=== PATIENT | female | born 2000 | race Asian ===

== ENCOUNTER 2023-12-11 19:56 | Emergency (ER) | payer OTHER, SELFPAY ==
[2023-12-11] VITALS (8 sets, daily range): BP systolic 102–119; BP diastolic 53–64; PULSE 71–84; RESP 16–22; TEMP 36.8; O2SAT 98–100; BMI 26.0
--- NOTE | 2023-12-11 20:51 | ED.GENADULT ---
HPI - General Adult General Chief complaint: Dizziness Stated complaint: HEADACHE, FEVER, BLURRED VISION Time Seen by Provider: 12/11/23 20:30 Source: patient Mode of arrival: Wheelchair History of Present Illness HPI narrative: Patient is a 23-year-old female who for the past 3 weeks has had seeing accept him on and off episodes of headache, occasional blurred vision, feeling chills but no overt fevers. Also has right ear discomfort. She has taken ibuprofen for the headache but it has not improved. Has not taken Tylenol. Earlier this evening she had a presyncopal episode that was witnessed by her which brought her into the emergency department. Related Data Allergies Allergy/AdvReac Type Severity Reaction Status Date / Time No Known Drug Allergies Allergy Verified 12/11/23 20:02 Review of Systems Review of Systems ROS Unobtainable: All systems reviewed & are unremarkable except as noted in HPI and below Patient History Social History Smoking Status: Current every day smoker Smoking Status: Current every day smoker tobacco type: vaping Substance Use Type: does not use Exam Initial Vital Signs Initial Vital Signs: Vital Signs Temperature 98.3 F 12/11/23 20:02 Pulse Rate 84 12/11/23 20:02 Respiratory Rate 16 12/11/23 20:02 Blood Pressure 112/60 12/11/23 20:02 Pulse Oximetry 99 12/11/23 20:02 Oxygen Delivery Method Room Air 12/11/23 20:02 Const General: cooperative, comfortable and No ill appearing HENMT Head: normal to inspection and normocephalic Ears: TM's normal bilaterally Mouth: moist mucous membranes Neck Neck: no meningeal signs Resp Effort & Inspection: normal respiratory effort Auscultation: clear to auscultation bilaterally Cardio Rate: regular rate Rhythm: regular rhythm GI Inspection: normal to inspection Skin General: no rashes or lesions noted Neuro General: patient alert, patient awake, patient oriented x3 and moves all extremities Cognition: normal cognition Speech: speech normal Sensory Exam: no sensory deficits noted Extrem General: capillary refill normal Scores GCS [place] coma scale eye opening: Spontaneous [place] coma scale verbal response: Orientated [place] coma scale motor response: Obey commands [place] coma scale total score: 15 Course Orders Ordered: ED Orders 12/11/23 20:35 Respiratory Panel (Film Array) Stat 12/11/23 20:45 Complete Blood Count AUTO DIFF Stat Comprehensive Metabolic Panel Stat Lipase Stat Discontinued Medications Sodium Chloride (Normal Saline 0.9%) 1,000 mls @ 1,000 mls/hr IV BOLUS ONE Stop: 12/11/23 21:29 Last Infusion: 12/11/23 22:17 Dose: Infused Documented By: Admin: 12/11/23 21:19 Dose: 1,000 mls/hr Documented By: JOSEPH Acetaminophen (Ofirmev) 1,000 mg in 100 mls @ 400 mls/hr IV NOW ONE Stop: 12/11/23 21:05 Last Infusion: 12/11/23 21:59 Dose: Infused Documented By: Admin: 12/11/23 21:19 Dose: 400 mls/hr Documented By: JOSEPH Vital Signs Vital signs: Vital Signs - 8 hr 12/11/23 20:02 12/11/23 20:22 12/11/23 20:30 Temperature 98.3 F Pulse Rate 84 83 76 Respiratory Rate 16 19 18 Blood Pressure 112/60 Pulse Oximetry 99 98 99 Oxygen Delivery Method Room Air 12/11/23 20:30 12/11/23 21:00 12/11/23 21:26 Temperature Pulse Rate 82 78 Respiratory Rate 22 21 Blood Pressure 106/53 L Pulse Oximetry 99 100 Oxygen Delivery Method Room Air 12/11/23 21:26 12/11/23 21:30 12/11/23 21:30 Temperature Pulse Rate 77 Respiratory Rate 22 Blood Pressure 119/57 L 112/56 L Pulse Oximetry 100 Oxygen Delivery Method 12/11/23 22:00 12/11/23 22:01 12/11/23 22:01 Temperature Pulse Rate 71 76 Respiratory Rate 18 18 Blood Pressure 102/64 Pulse Oximetry 98 98 Oxygen Delivery Method Room Air Medical Decision Making Lab Data Lab results reviewed: Yes I reviewed the patient's lab results. 12/11/23 20:45 12/11/23 20:45 Labs: Lab Results 12/11/23 12/11/23 Range/Units 20:35 20:45 WBC 9.5 (4.5-11.0) X10^3/uL RBC 4.73 (4.0-5.2) X10^6/uL Hgb 12.7 (12.0-16.0) g/dL Hct 38.1 (36-46) % MCV 80.5 (80-100) fL MCH 26.7 (26-34) PG MCHC 33.2 (30-36) % RDW 15.1 H (11.6-14.8) % Plt Count 319 (150-400) X10^3/uL Neut % (Auto) 57.6 (50-75) % Lymph % (Auto) 32.6 (25-40) % [place] % (Auto) 6.0 (3-14) % Eos % (Auto) 2.7 (2-4) % Baso % (Auto) 1.1 (0-2) % Neut # (Auto) 5500 (5654-4018) /uL Lymph # (Auto) 3100 (2467-4201) /uL [place] # (Auto) 600 (0-900) /uL Eos # (Auto) 300 (0-450) /uL Baso # (Auto) 100 (0-100) /uL Sodium 139 (137-145) mmol/L Potassium 4.2 (3.4-5.1) mmol/L Chloride 107 (98-107) mmol/L Carbon Dioxide 21 L (22-32) mmol/L BUN 9 (7-17) mg/dL Creatinine 1.02 (0.52-1.04) mg/dL Estimated GFR > 60 (>60) mL/min BUN/Creatinine Ratio 8.8 (6-22) Glucose 99 (70-100) mg/dL Calcium 9.4 (8.4-10.2) mg/dL Total Bilirubin 0.5 (0.2-1.3) mg/dL AST 18 (14-36) IU/L ALT 14 (<35) IU/L Alkaline Phosphatase 63 (38-126) U/L Total Protein 7.8 (6.3-8.2) g/dL Albumin 4.5 (3.5-5.0) g/dL Globulin 3.3 (1.7-4.1) g/dL Albumin/Globulin Ratio 1.4 (1.0-2.8) Lipase 64 (23-300) U/L Chlamy pneumoniae PCR Not detected (Not Detect) Adenovirus (PCR) Not detected (Not Detect) B.parapertussis DNA PCR Not detected (Not Detecte) Coronavirus OC43 (PCR) Not detected (Not Detect) Coronavirus HKU1 (PCR) Not detected (Not Detect) Coronavirus 229E (PCR) Not detected (Not Detect) SARS-CoV-2 (PCR) Not detected (Not Detecte) Coronavirus NL63 (PCR) Not detected (Not Detect) Human Metapneumovir PCR Not detected (Not Detect) Influenza Type A (PCR) Not detected (Not Detect) Influenza Type B (PCR) Not detected (Not Detect) M. pneumoniae (PCR) Not detected (Not Detect) Parainfluenza 1 (PCR) Not detected (Not Detect) Parainfluenza 2 (PCR) Not detected (Not Detect) Parainfluenza 3 (PCR) Not detected (Not Detect) Parainfluenza 4 (PCR) Not detected (Not Detect) RSV (PCR) Not detected (Not Detect) Entero/Rhino (PCR) Not detected (Not Detect) MDM Narrative Medical decision making narrative: Patient reports improvement of symptoms after her IV Tylenol. Low suspicion for meningitis. Respiratory panel is negative. She has an unremarkable exam. Symptoms been going on for 3 weeks. She was afebrile. No indication for antibiotics. If her symptoms continue she may benefit from a referral to see ENT. She was given return precautions. She expressed understanding and agreement with plan. Discharge Plan Departure Patient Disposition: Home Clinical Impression: Headache, Dizziness Instructions: DI for Dizziness-Nonvertigo Activity Restrictions/Additional Instructions: You can continue to take Tylenol and/or ibuprofen to try to help with your symptoms. Recommend you contact your primary care doctor for a follow-up. You may need a referral to see ear nose and throat if your symptoms are not improving. Return to the emergency department for new symptoms. Referrals: Tamie Gallo FNP-C [Primary Care Provider] - Austin Simpson MD [Physician] - Stand Alone Forms: Patient Portal/API
[2023-12-11 20:57] LABS: Add Manual Diff / Slide Review NO; Basophils Absolute Auto 100 /uL (0-100); Basophils Percent Auto 1.1 % (0-2); Eosinophils Absolute Auto 300 /uL (0-450); Eosinophils Percent Auto 2.7 % (2-4); Hematocrit 38.1 % (36-46); Hemoglobin 12.7 g/dL (12.0-16.0); Lymphocytes Absolute Auto 3100 /uL (1100-4500); Lymphocytes Percent Auto 32.6 % (25-40); Mean Corpuscular HGB Conc 33.2 % (30-36); Mean Corpuscular Hemoglobin 26.7 PG (26-34); Mean Corpuscular Volume 80.5 fL (80-100); Monocytes Absolute Auto 600 /uL (0-900); Neutrophils Absolute Auto 5500 /uL (1500-7000); Neutrophils Percent Auto 57.6 % (50-75); Platelet Count 319 X10^3/uL (150-400); Red Blood Cell Count 4.73 X10^6/uL (4.0-5.2); Red Cell Distribution Width 15.1 % (11.6-14.8); White Blood Cell Count 9.5 X10^3/uL (4.5-11.0)
[2023-12-11 21:08] LABS: Alanine Aminotransferase 14 IU/L (<35); Albumin 4.5 g/dL (3.5-5.0); Albumin Globulin Ratio 1.4 (1.0-2.8); Alkaline Phosphatase 63 U/L (38-126); Aspartate Aminotransferase 18 IU/L (14-36); BUN Creatinine Ratio 8.8 (6-22); Bilirubin Total 0.5 mg/dL (0.2-1.3); Blood Urea Nitrogen 9 mg/dL (7-17); Calcium 9.4 mg/dL (8.4-10.2); Carbon Dioxide 21 mmol/L (22-32); Chloride 107 mmol/L (98-107); Estimated Glomerular Filt Rate > 60 mL/min (>60); Globulin 3.3 g/dL (1.7-4.1); Glucose 99 mg/dL (70-100); HEMOLYSIS < 15 (0-50); Lipase 64 U/L (23-300); Potassium 4.2 mmol/L (3.4-5.1); Sodium 139 mmol/L (137-145); Total Protein 7.8 g/dL (6.3-8.2)
[2023-12-11] MEDS: SODIUM CHLORIDE 0.9% 1,000 ML 1000 ML IV (21:19)
[2023-12-11] MEDS: ACETAMINOPHEN IV 1,000 MG/100 ML VIAL 400 MG IV (21:19)
[2023-12-11 21:41] LABS: Adenovirus Not Detected (Not Detect); B. parapertussis Not Detected (Not Detecte); Bordetella pertussis Not Detected (Not Detect); Chlamydophila pneumoniae Not Detected (Not Detect); Coronavirus 229E Not Detected (Not Detect); Coronavirus HKU1 Not Detected (Not Detect); Coronavirus NL 63 Not Detected (Not Detect); Coronavirus OC43 Not Detected (Not Detect); Human Metapneumovirus Not Detected (Not Detect); Human Rhinovirus/Enterovirus Not Detected (Not Detect); Influenza A Not Detected (Not Detect); Influenza B Not Detected (Not Detect); Mycoplasma pneumoniae Not Detected (Not Detect); Parainfluenza Virus 1 Not Detected (Not Detect); Parainfluenza Virus 2 Not Detected (Not Detect); Parainfluenza Virus 3 Not Detected (Not Detect); Parainfluenza Virus 4 Not Detected (Not Detect); Respiratory Syncytial Virus Not Detected (Not Detect); SARS- CoV-2 Not Detected (Not Detecte)
== END 2023-12-11 22:16 | disposition home or self-care (01) ==
PROVIDERS: Emergency Provider Emergency Medicine; Family Provider Nurse Practitioner Family; PCP Nurse Practitioner Family
DX: R51.9 Headache, unspecified (principal); R42 Dizziness and giddiness; H53.8 Other visual disturbances; R55 Syncope and collapse
CPT/HCPCS: 36415; 80053; 83690; 85025; 87633; 96365; 99284; J0136

== ENCOUNTER 2023-12-13 16:55 | Emergency (ER) | payer OTHER, SELFPAY ==
[2023-12-13 17:01] VITALS: BP 110/60; PULSE 88; RESP 16; TEMP 36.8; O2SAT 98; BMI 26.0
--- NOTE | 2023-12-13 18:07 | ED_ITS ---
HPI - Headache General Chief Complaint: Headache Stated Complaint: N/V, ear pain, dizzy, headache Time Seen by Provider: 12/13/23 17:56 Mode of arrival: Family Vehicle History of Present Illness HPI Narrative: 23-year-old female with no reported past medical history presents for headache, bilateral ear pain, occasional nausea. Patient is seen 2 days prior in our emergency department for same. Had unremarkable laboratory work and negative respiratory panel, discharged home with supportive therapies. Patient states that her headache is now worse and she feels slightly lightheaded, which is the reason for coming back to the emergency department. Patient also requesting a test. States that Tylenol and ibuprofen do not seem to be controlling her symptoms. Related Data Allergies Allergy/AdvReac Type Severity Reaction Status Date / Time shellfish derived Allergy Verified 12/13/23 17:05 Patient History Social History Smoking Status: Current every day smoker Smoking Status: Current every day smoker tobacco type: vaping Substance Use Type: does not use Exam Initial Vital Signs Initial Vital Signs: Vital Signs Temperature 98.3 F 12/13/23 17:01 Pulse Rate 88 12/13/23 17:01 Respiratory Rate 16 12/13/23 17:01 Blood Pressure 110/60 12/13/23 17:01 Pulse Oximetry 98 12/13/23 17:01 Oxygen Delivery Method Room Air 12/13/23 17:01 Const: Awake, alert, no acute distress, nontoxic appearing HEENT: PERRLA, EOMI, TMs clear bilaterally Cardiac: regular rate, regular rhythm RESP: unlabored, clear bilaterally, no wheezing Skin: Warm, Dry, intact, no rashes Neuro: AO x3, CN II-XII grossly intact, moves all extremities Course Orders Ordered: Discontinued Medications Diphenhydramine HCl (Diphenhydramine 50 Mg/Ml Vial) 50 mg IV NOW ONE Stop: 12/13/23 18:40 Last Admin: 12/13/23 18:47 Dose: 50 mg Documented By: Ketorolac Tromethamine (Ketorolac 30 Mg/Ml Vial) 15 mg IV NOW ONE Stop: 12/13/23 18:40 Last Admin: 12/13/23 18:47 Dose: 15 mg Documented By: Metoclopramide HCl (Metoclopramide 10 Mg/2 Ml Inj) 10 mg IV NOW ONE Stop: 12/13/23 18:40 Last Admin: 12/13/23 18:48 Dose: 10 mg Documented By: Vital Signs Vital signs: Vital Signs - 8 hr 12/13/23 17:01 Temperature 98.3 F Pulse Rate 88 Respiratory Rate 16 Blood Pressure 110/60 Pulse Oximetry 98 Oxygen Delivery Method Room Air MDM - Headache Differential Diagnosis Differential diagnosis: Likely migraine, tension headache and headache Lab Data Labs: Point of Care Testing Test Results Negative Urine Dip Bedside Urine Glucose Negative Bedside Urine Bilirubin - Negative Bedside Urine Ketone - Negative Urine Specific [place] 1.020 Bedside Urine Occult Blood - Negative Bedside Urine pH 6.0 Bedside Urine Protein - Negative Bedside Urine Urobilinogen - Negative Bedside Urine Nitrite - Negative Bedside Urine Leukocytes - Negative Esterase Imaging Data CT scan - head: Radiologist's Impression: PROCEDURE: CT HEAD/BRAIN WO CON INDICATIONS: [place]/NOT IMPROVING/NEW PATTERN TECHNIQUE: Noncontrast 4.5 mm thick angled axial sections acquired from the foramen magnum to the vertex, with coronal and sagittal reformats. For radiation dose reduction, the following was used: automated exposure control, adjustment of mA and/or kV according to patient size. COMPARISON: None. FINDINGS: Image quality: Diagnostic. CSF spaces: Basal cisterns are patent. No extra-axial fluid collections. Ventricles are normal in size and shape. Brain: No midline shift. No intracranial masses or hemorrhage. Mart-white ma tter interface is normal. Skull and face: Calvarium and visualized facial bones are intact, without suspicious lesions. Sinuses: Visualized sinuses and mastoids are clear. IMPRESSION: No acute intracranial pathology. Dictated by: Alexis Glass M.D. on 12/13/2023 at 19:13 Approved by: Alexis Glass M.D. on 12/13/2023 at 19:13 [facility] Narrative Medical decision making narrative: Well-appearing patient with a persistent headache. Underwent laboratory work and viral panel testing 2 days prior, which showed no acute findings. Patient afebrile, exam benign. Since this is a repeat visit for the headache a CT brain will be ordered. Headache cocktail ordered. CT brain negative for acute findings. Patient received IV medications for headache with improvement. Patient informed of imaging findings. With the ear pain and headache I do suspect that there may be a viral process even with a negative viral panel 2 days prior. Patient recommended to continue to take Tylenol and ibuprofen as needed for pain, I recommended adding a decongestant for ear pain. PCP follow up advised. Discharge Plan Departure Patient Disposition: Home Clinical Impression: Headache Instructions: DI for Headache Activity Restrictions/Additional Instructions: Your head CT was normal. Your laboratory work from several days ago was normal. I do suspect that a virus is at least partially contributing to your symptoms. Continue to take Tylenol and ibuprofen for headache. Make sure that you stay hydrated and drink plenty of fluids. I recommend adding a decongestants such as Mucinex or Sudafed to help your ear pain and sore throat. Referrals: Tamie Gallo FNP-C [Primary Care Provider] - Stand Alone Forms: Patient Portal/API
--- NOTE | 2023-12-13 18:39 | DI.CT.S_ITS ---
PROCEDURE: CT HEAD/BRAIN WO CON INDICATIONS: [place]/NOT IMPROVING/NEW PATTERN TECHNIQUE: Noncontrast 4.5 mm thick angled axial sections acquired from the foramen magnum to the vertex, with coronal and sagittal reformats. For radiation dose reduction, the following was used: automated exposure control, adjustment of mA and/or kV according to patient size. COMPARISON: None. FINDINGS: Image quality: Diagnostic. CSF spaces: Basal cisterns are patent. No extra-axial fluid collections. Ventricles are normal in size and shape. Brain: No midline shift. No intracranial masses or hemorrhage. Mart-white matter interface is normal. Skull and face: Calvarium and visualized facial bones are intact, without suspicious lesions. Sinuses: Visualized sinuses and mastoids are clear. IMPRESSION: No acute intracranial pathology. Dictated by: Alexis Glass M.D. on 12/13/2023 at 19:13 Approved by: Alexis Glass M.D. on 12/13/2023 at 19:13
[2023-12-13] MEDS: diphenhydrAMINE 50 MG/ML VIAL IV (18:47)
[2023-12-13] MEDS: KETOROLAC 30 MG/ML VIAL 15 MG IV (18:47)
[2023-12-13] MEDS: METOCLOPRAMIDE 10 MG/2 ML INJ IV (18:48)
[2023-12-13 19:02] VITALS: BP 99/46; PULSE 74; O2SAT 100
[2023-12-13 19:30] VITALS: PULSE 60; TEMP 36.5; O2SAT 100
== END 2023-12-13 19:43 | disposition home or self-care (01) ==
PROVIDERS: Emergency Provider Emergency Medicine; Family Provider Nurse Practitioner Family; PCP Nurse Practitioner Family
DX: R51.9 Headache, unspecified (principal); R42 Dizziness and giddiness; H92.03 Otalgia, bilateral
CPT/HCPCS: 70450; 81003; 81025; 96374; 96375; 99283; J1200; J1885; J2765

== ENCOUNTER 2023-12-29 18:13 | Emergency (ER) | payer OTHER, SELFPAY ==
[2023-12-29 18:14] VITALS: BP 118/56; PULSE 105; RESP 20; TEMP 36.4; O2SAT 99; BMI 25.9
[2023-12-29] MEDS: ONDANSETRON 4 MG/2 ML INJ IV (18:29)
[2023-12-29 18:46] LABS: Add Manual Diff / Slide Review NO; Basophils Absolute Auto 100 /uL (0-100); Basophils Percent Auto 1.2 % (0-2); Eosinophils Absolute Auto 200 /uL (0-450); Eosinophils Percent Auto 3.2 % (2-4); Hematocrit 36.9 % (36-46); Hemoglobin 12.2 g/dL (12.0-16.0); Lymphocytes Absolute Auto 2500 /uL (1100-4500); Lymphocytes Percent Auto 33.2 % (25-40); Mean Corpuscular Hemoglobin 27.1 PG (26-34); Monocytes Absolute Auto 600 /uL (0-900); Monocytes Percent Auto 7.9 % (3-14); Neutrophils Absolute Auto 4100 /uL (1500-7000); Neutrophils Percent Auto 54.5 % (50-75); Platelet Count 356 X10^3/uL (150-400); Red Cell Distribution Width 15.1 % (11.6-14.8); White Blood Cell Count 7.6 X10^3/uL (4.5-11.0)
--- NOTE | 2023-12-29 18:50 | ED_ITS ---
HPI - Nausea/Vomiting/Diarrhea General Chief complaint: Nausea/Vomiting/Diarrhea Stated complaint: vomiting, ear px Time Seen by Provider: 12/29/23 18:29 Source: patient Mode of arrival: Family Vehicle History of Present Illness HPI Narrative: 23-year-old female presents by private vehicle from home for 1 day of headache with nausea and vomiting. Patient reports over 10 episodes of emesis earlier today. Unable to keep down [id number] medications for her headache. Also reporting bilateral ear pain. Young son at home recently diagnosed with an upper respiratory virus. Headache already nearly resolved by time of arrival to the emergency department. Related Data Previous Rx's Medication Instructions Recorded ondansetron 4 mg disintegrating 4 mg PO Q8H PRN nausea and 12/29/23 tablet vomiting #30 tabs Allergies Allergy/AdvReac Type Severity Reaction Status Date / Time shellfish derived Allergy Verified 12/13/23 17:05 Patient History Social History Smoking Status: Current every day smoker Smoking Status: Current every day smoker tobacco type: vaping Substance Use Type: does not use Exam Initial Vital Signs Initial Vital Signs: Vital Signs Temperature 97.5 F L 12/29/23 18:14 Pulse Rate 105 H 12/29/23 18:14 Respiratory Rate 20 12/29/23 18:14 Blood Pressure 118/56 L 12/29/23 18:14 Pulse Oximetry 99 12/29/23 18:14 Oxygen Delivery Method Room Air 12/29/23 18:14 Const: Awake, alert, no acute distress, nontoxic appearing HEENT: TM normal bilaterally, pharynx normal, PERRLA, EOMI Cardiac: regular rate, regular rhythm RESP: unlabored, clear bilaterally, no wheezing GI: Soft, nontender, nondistended, no rebound, no guarding Skin: Warm, Dry, intact, no rashes Neuro: AO x3, CN II-XII grossly intact, moves all extremities Course Orders Ordered: ED Orders 12/29/23 18:27 Covid-19 + FLU A/B + RSV - PCR Stat 12/29/23 18:30 Complete Blood Count AUTO DIFF Stat Comprehensive Metabolic Panel Stat Lipase Stat Discontinued Medications Diphenhydramine HCl (Diphenhydramine 50 Mg/Ml Vial) 50 mg IV NOW ONE Stop: 12/29/23 18:45 Last Admin: 12/29/23 19:03 Dose: 25 mg Documented By: FLOWER Sodium Chloride (Normal Saline 0.9%) 1,000 mls @ 1,000 mls/hr IV BOLUS ONE Stop: 12/29/23 19:43 Last Infusion: 12/29/23 19:52 Dose: Infused Documented By: Admin: 12/29/23 19:03 Dose: 1,000 mls/hr Documented By: FLOWER Ketorolac Tromethamine (Ketorolac 30 Mg/Ml Vial) 15 mg IV NOW ONE Stop: 12/29/23 18:45 Last Admin: 12/29/23 19:04 Dose: 15 mg Documented By: FLOWER Metoclopramide HCl (Metoclopramide 10 Mg/2 Ml Inj) 10 mg IV NOW ONE Stop: 12/29/23 18:45 Last Admin: 12/29/23 19:04 Dose: 10 mg Documented By: FLOWER Ondansetron HCl (Ondansetron 4 Mg/2 Ml Inj) 4 mg IV NOW PRN PRN Reason: Nausea And Vomiting Last Admin: 12/29/23 18:29 Dose: 4 mg Documented By: KOSTA Ondansetron HCl (Ondansetron 4 Mg Odt) 4 mg PO NOW PRN PRN Reason: Nausea And Vomiting Vital Signs Vital signs: Vital Signs - 8 hr 12/29/23 18:14 12/29/23 20:15 12/29/23 20:18 Temperature 97.5 F L 98.6 F 98.6 F Pulse Rate 105 H 84 Respiratory Rate 20 16 Blood Pressure 118/56 L 102/55 L Pulse Oximetry 99 98 Oxygen Delivery Method Room Air Room Air MDM - Nausea/Vomiting/Diarrhea Lab Data 12/29/23 18:30 12/29/23 18:30 Labs: Lab Results 12/29/23 12/29/23 Range/Units 18:27 18:30 WBC 7.6 (4.5-11.0) X10^3/uL RBC 4.50 (4.0-5.2) X10^6/uL Hgb 12.2 (12.0-16.0) g/dL Hct 36.9 (36-46) % MCV 82.0 (80-100) fL MCH 27.1 (26-34) PG MCHC 33.0 (30-36) % RDW 15.1 H (11.6-14.8) % Plt Count 356 (150-400) X10^3/uL Neut % (Auto) 54.5 (50-75) % Lymph % (Auto) 33.2 (25-40) % [place] % (Auto) 7.9 (3-14) % Eos % (Auto) 3.2 (2-4) % Baso % (Auto) 1.2 (0-2) % Neut # (Auto) 4100 (7832-9000) /uL Lymph # (Auto) 2500 (4197-2415) /uL [place] # (Auto) 600 (0-900) /uL Eos # (Auto) 200 (0-450) /uL Baso # (Auto) 100 (0-100) /uL Sodium 137 (137-145) mmol/L Potassium 3.7 (3.4-5.1) mmol/L Chloride 105 (98-107) mmol/L Carbon Dioxide 25 (22-32) mmol/L BUN 10 (7-17) mg/dL Creatinine 0.65 (0.52-1.04) mg/dL Estimated GFR > 60 (>60) mL/min BUN/Creatinine Ratio 15.4 (6-22) Glucose 79 (70-100) mg/dL Calcium 8.9 (8.4-10.2) mg/dL Total Bilirubin 0.4 (0.2-1.3) mg/dL AST 20 (14-36) IU/L ALT 15 (<35) IU/L Alkaline Phosphatase 73 (38-126) U/L Total Protein 8.1 (6.3-8.2) g/dL Albumin 4.3 (3.5-5.0) g/dL Globulin 3.8 (1.7-4.1) g/dL Albumin/Globulin Ratio 1.1 (1.0-2.8) Lipase 61 (23-300) U/L SARS-CoV-2 (PCR) Negative (Negative) Influenza A (RT-PCR) Flu a negative (NEGATIVE) Influenza B (RT-PCR) Flu b negative (NEGATIVE) RSV (PCR) Negative (Negative) Point of Care Testing Test Results Negative Urine Dip Bedside Urine Glucose Negative Bedside Urine Bilirubin - Negative Bedside Urine Ketone - Negative Urine Specific [place] 1.015 Bedside Urine Occult Blood - Negative Bedside Urine pH 6.0 Bedside Urine Protein - Negative Bedside Urine Urobilinogen - Negative Bedside Urine Nitrite - Negative Bedside Urine Leukocytes - Negative Esterase MDM Narrative Medical decision making narrative: Nausea and vomiting with the associated headache, headache now resolved. Abdomen soft, patient nontoxic in appearance. Patient has already had CT imaging for headaches previously. Neurologically intact, no indication for advanced imaging at this time. Laboratory work reviewed, no electrolyte derangements, flu, COVID, RSV negative. Patient received medications for nausea as well as IV fluids with resolution of her symptoms. Patient is subsequently able to tolerate p.o. and on repeat exam resting comfortably in bed. Supportive care measures counseled for home. Nausea medication sent to pharmacy of choice. Note for work provided. Discharge Plan Departure Patient Disposition: Home Clinical Impression: Nausea, Vomiting, and Diarrhea Instructions: DI for Vomiting -- Adult Activity Restrictions/Additional Instructions: Your blood work today looks normal. Follow a light diet for the next several days. A nausea medication has been sent to your pharmacy, you may use this as needed for nausea and vomiting. Prescriptions: New ondansetron 4 mg tablet,disintegrating 4 mg PO Q8H PRN (Reason: nausea and vomiting) Qty: 30 0RF Referrals: Tamie Gallo FNP-C [Primary Care Provider] - Stand Alone Forms: Patient Portal/API, Work Release Note
[2023-12-29 18:58] LABS: Alanine Aminotransferase 15 IU/L (<35); Albumin 4.3 g/dL (3.5-5.0); Albumin Globulin Ratio 1.1 (1.0-2.8); Alkaline Phosphatase 73 U/L (38-126); Aspartate Aminotransferase 20 IU/L (14-36); BUN Creatinine Ratio 15.4 (6-22); Bilirubin Total 0.4 mg/dL (0.2-1.3); Blood Urea Nitrogen 10 mg/dL (7-17); Calcium 8.9 mg/dL (8.4-10.2); Carbon Dioxide 25 mmol/L (22-32); Chloride 105 mmol/L (98-107); Estimated Glomerular Filt Rate > 60 mL/min (>60); Globulin 3.8 g/dL (1.7-4.1); Glucose 79 mg/dL (70-100); HEMOLYSIS < 15 (0-50); Lipase 61 U/L (23-300); Potassium 3.7 mmol/L (3.4-5.1); Sodium 137 mmol/L (137-145); Total Protein 8.1 g/dL (6.3-8.2)
[2023-12-29] MEDS: SODIUM CHLORIDE 0.9% 1,000 ML 1000 ML IV (19:03)
[2023-12-29] MEDS: diphenhydrAMINE 50 MG/ML VIAL IV (19:03)
[2023-12-29] MEDS: KETOROLAC 30 MG/ML VIAL 15 MG IV (19:04)
[2023-12-29] MEDS: METOCLOPRAMIDE 10 MG/2 ML INJ IV (19:04)
[2023-12-29 19:07] LABS: Influenza A - CEPHEID Flu A NEGATIVE (NEGATIVE); Influenza B - CEPHEID Flu B NEGATIVE (NEGATIVE); Respiratory Syncytial Virus Negative (Negative)
[2023-12-29 19:11] LABS: COVID-19 CEPHEID 4-PLEX PCR Negative (Negative)
[2023-12-29 20:15] VITALS: TEMP 37
[2023-12-29 20:18] VITALS: BP 102/55; PULSE 84; RESP 16; TEMP 37; O2SAT 98
== END 2023-12-29 20:19 | disposition home or self-care (01) ==
PROVIDERS: Emergency Provider Emergency Medicine; Family Provider Nurse Practitioner Family; PCP Nurse Practitioner Family
DX: R11.2 Nausea with vomiting, unspecified (principal); R51.9 Headache, unspecified; H92.03 Otalgia, bilateral; Z11.52 Encounter for screening for COVID-19
CPT/HCPCS: 0241U; 36415; 80053; 81003; 81025; 83690; 85025; 96361; 96374; 96375; 99284; J1200; J1885; J2405; J2765

== ENCOUNTER → 2024-03-26 08:51 | Outpatient (CLI) | payer OTHER, SELFPAY | LOC: PHYS 08:52 | PROVIDERS: Family Provider Nurse Practitioner Family; PCP Nurse Practitioner Family; Referring Provider Nurse Practitioner Family; Visit Provider Nurse Practitioner Family | DX: M25.531 Pain in right wrist (principal) | CPT/HCPCS: 95886; 95909 ==